=== PATIENT | male | born 1995 | race Caucasian/White ===

== ENCOUNTER → 2019-06-13 | Outpatient (CLI) | payer OTHER, SELFPAY ==
[2019-06-13 09:59] VITALS: BMI 21.8
== END | disposition home or self-care (01) ==
LOC: LABSPEC 13:47
PROVIDERS: Family Provider Pediatrics; PCP Pediatrics; Referring Provider Physician Assistant Surgical; Visit Provider Physician Assistant Surgical
DX: J02.9 Acute pharyngitis, unspecified (principal)
CPT/HCPCS: 87070

== ENCOUNTER → 2020-06-20 | Outpatient (CLI) | payer OTHER, SELFPAY ==
[2019-07-06 16:38] VITALS: BMI 21.8
[2020-06-20 18:28] LABS: Anion Gap 4 (5-15); BUN 11 mg/dL (7-18); Calcium,Total 9.1 mg/dL (8.5-10.1); Chloride 103 mmol/L (98-107); Cholesterol 141 mg/dL (200); EST Glomerular Filtration Rate 88 mL/min (>60); Est Glom Filt Rate - Afr Amer 106 mL/min (>60); Glucose 74 mg/dL (74-106); High Density Lipoprotein 49 mg/dL; Potassium 4.1 mmol/L (3.5-5.1); Sodium Level 137 mmol/L (136-145); Thyroid Stim Hormone (TSH) 1.43 uIU/mL (0.358-3.74); Triglycerides 100 mg/dL; Very Low Density Lipoprotein 20 mg/dL (5-40)
== END | disposition home or self-care (01) ==
LOC: MFPLAB 16:31
PROVIDERS: PCP Family Medicine; Referring Provider Family Medicine; Visit Provider Family Medicine
DX: Z00.00 Encounter for general adult medical examination without abnormal findings (principal); F41.9 Anxiety disorder, unspecified
CPT/HCPCS: 36415; 80048; 80061; 84443

== ENCOUNTER 2021-11-20 16:09 | Outpatient (CLI) | payer OTHER, SELFPAY ==
--- NOTE | 2021-11-20 16:14 | RAD_ITS ---
HISTORY: BACK PAIN. TECHNIQUE: XR Spine Lumbar Min 4 Views. Number of images including paperwork: 4. COMPARISON: None. FINDINGS: VERTEBRAE: 5 lumbar vertebral bodies. Vertebral body heights maintained. No acute fracture identified. VERTEBRAL ALIGNMENT: No significant anterior or posterior subluxation. Very mild levocurvature noted. INTERVERTEBRAL DISCS: Mild intervertebral disc space narrowing of L4-5 and L5-S1. SOFT TISSUES: Moderate stool and air in the colon. RAD/L/S Spine Min 4 Views IMPRESSION: No acute fracture or dislocation identified in the lumbar spine. Mild intervertebral disc space narrowing in the lower lumbar spine. at 1030 Reported and signed by: Carol Ken MD Electronically Signed: Carol Ken MD at 10:28 EST ,
== END 2021-11-20 23:59 | disposition home or self-care (01) ==
PROVIDERS: PCP Family Medicine; Referring Provider Family Medicine; Visit Provider Family Medicine
DX: M54.9 Dorsalgia, unspecified (principal)
CPT/HCPCS: 72110

== ENCOUNTER → 2023-06-10 | Outpatient (CLI) | payer OTHER, SELFPAY ==
[2023-06-10 12:42] LABS: Anion Gap 2 (5-15); BUN 12 mg/dL (7-18); Calcium,Total 9.3 mg/dL (8.5-10.1); Chloride 106 mmol/L (98-107); Cholesterol 146 mg/dL (200); EST Glomerular Filtration Rate 96 mL/min (>60); Est Glom Filt Rate - Afr Amer 116 mL/min (>60); Glucose 88 mg/dL (74-106); High Density Lipoprotein 50 mg/dL; Potassium 3.6 mmol/L (3.5-5.1); Sodium Level 138 mmol/L (136-145); Triglycerides 72 mg/dL; Very Low Density Lipoprotein 14 mg/dL (5-40)
== END | disposition home or self-care (01) ==
PROVIDERS: PCP Family Medicine; Referring Provider Family Medicine; Visit Provider Family Medicine
DX: Z00.00 Encounter for general adult medical examination without abnormal findings (principal)
CPT/HCPCS: 36415; 80048; 80061

== ENCOUNTER → 2023-11-30 | Outpatient (CLI) | payer OTHER, SELFPAY ==
--- NOTE | 2023-11-30 16:24 | MRI_ITS ---
STUDY: MRI LUMBAR SPINE WITHOUT CONTRAST REASON FOR EXAM: Male, 28 years old. Pain TECHNIQUE: Standardized fat and water weighted pulse sequences were obtained in the sagittal and axial planes. COMPARISON: X-ray November 22, 2023 FINDINGS: The generalized signal intensity of the osseous structures is intact. There is marrow edema of the posterior spinous processes of T12, L1, and L2. There is marrow edema of the lower sacrum. T12-L1: Normal endplates. Normal disc height, hydration and morphology. Normal bilateral facet joints. Normal central canal and bilateral lateral recesses. Normal bilateral intervertebral neural foramina. Normal lumbar lordosis. There is no substantial scoliosis. Normal conus medullaris that terminates at the T12 level. L1-2: Normal endplates. Normal disc height, hydration and morphology. Normal bilateral facet joints. Normal central canal and bilateral lateral recesses. Normal bilateral intervertebral neural foramina. L2-3: Normal endplates. Normal disc height, hydration and morphology. Normal bilateral facet joints. Normal central canal and bilateral lateral recesses. Normal bilateral intervertebral neural foramina. L3-4: Normal endplates. Normal disc height, hydration and morphology. Mild spurring of the bilateral facet joints. Normal central canal and bilateral lateral recesses. Normal bilateral intervertebral neural foramina. L4-5: There is disc desiccation. Central left paracentral disc protrusion, series 11 image 11. Facet spurring and ligamentum flavum hypertrophy. Moderate canal stenosis. Mild right foraminal narrowing. L5-S1: Normal endplates. Normal disc height, hydration and morphology. Normal bilateral facet joints. Normal central canal and bilateral lateral recesses. Normal bilateral intervertebral neural foramina. Normal visualized sacral ala. Normal visualized paraspinous soft tissue structures. MRI/Spine Lumbar (Routine) IMPRESSION: Disc herniation with canal stenosis at L4-5. Stress fracture/injury versus contusion of the sacrum and posterior spinous processes of T12, L1, L2. Electronically Signed: Trevon Cobos MD at 23:16 EDT ,
== END | disposition home or self-care (01) ==
PROVIDERS: PCP Family Medicine; Referring Provider Orthopaedic Surgery; Visit Provider Orthopaedic Surgery
DX: M51.26 Other intervertebral disc displacement, lumbar region (principal)
CPT/HCPCS: 72148

== ENCOUNTER → 2024-06-22 | Outpatient (CLI) | payer OTHER, SELFPAY ==
[2024-06-22 13:11] LABS: Anion Gap 3 (5-15); BUN 11 mg/dL (7-18); BUN/Creat Ratio 10.3 RATIO (10-20); Calcium,Total 9.9 mg/dL (8.5-10.1); Chloride 105 mmol/L (98-107); Cholesterol 158 mg/dL (200); Creatinine, Serum 1.07 mg/dL (0.70-1.30); EST Glomerular Filtration Rate 88 mL/min (>60); Est Glom Filt Rate - Afr Amer 106 mL/min (>60); Glucose 83 mg/dL (74-106); High Density Lipoprotein 55 mg/dL; Potassium 3.8 mmol/L (3.5-5.1); Sodium Level 138 mmol/L (136-145); Triglycerides 85 mg/dL; Very Low Density Lipoprotein 17 mg/dL (5-40)
== END | disposition home or self-care (01) ==
LOC: MFPLAB 09:38
PROVIDERS: PCP Family Medicine; Visit Provider Family Medicine
DX: Z00.00 Encounter for general adult medical examination without abnormal findings (principal)
CPT/HCPCS: 36415; 80048; 80061

== ENCOUNTER 2024-08-31 07:00 | Outpatient (RCR) | payer OTHER, SELFPAY ==
--- NOTE | 2024-08-03 08:51 | HP.PTEVAL ---
Patient's Visit Information Visit Information Visit Information: JAMES MORALES is a 28 year old M referred to Physical Therapy by Dr. Uvaldo Ritchie MD with a diagnosis of Lumbar DDD. Date of Evaluation: 08/03/24 Physical Therapist: Shmuel Wiggins DPT Visit Plan Frequency: 1x/Week Duration: 6 Weeks Plan: 1) neutral spine TA contraction, quadruped core stability exercises. 2) lumbar extension with self over pressure May add in IASTIM to bilateral lumbar erector spinae prior to exercises as well HEP at eval: REIL with towel over pressure, TA with iso hip flex, TA with bridge, bird dog, hollow hold Pt. to come in x1 per week with updated HEP weekly Subjective Subjective: Pt is here today for his initial evaluation with diagnosis of lumbar degenerative disc disease. He reports hurting his disc in November of 2023 when he bent over to lift a box. Pt. was using a PT [place] and had some initial success, but never fully relieved his symptoms. He reports he was doing most stretching, he described extension based exercises. Never got to strengthening phase of exercises. He reports increased pain now with bending, getting on floor and with lifting as well as prolonged sitting/standing. He reports mornings are not too bad. He sleeps on his R side mostly. Pt. has become less consistent with his exercises as he was not seeing much change. 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 Pt. 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 Pt. reports no radicular symptoms. Pain Lumbar spine: Pain Intensity (Out of 10): 0 Pain Intensity Range: 0 and 4 Objective Objective: POSTURE: Pt. has a general slouched posture in sitting. Pt. is able to correct with VC/TCing. Pt. has good standing posture. No lateral shift noted. No marked excessive lordosis or sway back positioning. PALPATION: Pt. did have some mild soreness throughout lumbar spine with spring testing, but more general. Pt. did not have any hypomobility noted. Pt. did have marked tenderness at B lumbar erector spinae, L worse than right. ROM: B hips: good ROM throughout. Pretty tight HS and hip flexors. LUMBAR SPINE: flexion min loss increase NW, ext min/nil loss decrease NB, SB nil loss NE, rotation nil loss NE. MMT: Pt. has 5/5 strength throughout B distal LEs. Pt. has 4+/5 B hip strength with flexion abd and extension. Core strength: flexion fair-. Lumbar extension: fair with increase no worse pain. When I gave him stability with press throughout his core he was able to complete with out increase in symptoms. GAIT: normal without issues. STAIRS: normal without much issues. Special Tests L/S Slump test left side: Negative L/S Slump test right side: Negative L/S Left Straight Leg Raise: Negative L/S Right Straight Leg Raise: Negative Balance/Special Test Scores Oswestry Low Back Score: 13 Goals Goal 1:: LTG: Pt. to be I with HEP for neutral spine core stability and lumbar ROM. Goal Time Frame: 4-6 Weeks Goal 2:: STG: Pt. to have full ROM of lumbar spine without increase in symptoms. Goal Time Frame: 2-4 Weeks Goal 3:: LTG: pt. to have 5/5 strength throughout bilateral hips and core. Goal Time Frame: 4-6 Weeks Goal 4:: LTG: Pt. to complete all work activities including prolonged sitting without increase in low back pain. Goal Time Frame: 4-6 Weeks Goal 5:: LTG: Pt. to be able to walk for 30+ min without increase in LBP. Goal Time Frame: 4-6 Weeks Rehabilitation Potential Physical Therapy Diagnosis: Pt. has signs and symptoms consistent with lumbar DDD. Pt. had decent ROM, but was limited into flexion secondary to pain. No marked myotomal weakness noted, but has marked core weakness. Pt. would benefit from PT to address his lumbar ROM and core stability to reduce stress on lumbar spine with all functional mobility and ADLs. Rehabilitation Potential: Excellent Anticipated Interventions Patient/Client Instruction: Educate patient on: Condition, Plan of Care, Risk Factors and Benefits of Fitness Program For the Purpose of:: To improve decision making, To facilitate caregiver knowledge, To improve self management, To prevent re-injury, To improve ability to perform tasks related to life management and To improve tolerance to ADL's Therapeutic Exercise to Include: Strength training, Power training, Endurance training, Body mechanics, Postural training, Flexibilty training, Passive ROM, Active ROM, Dynamic Lumbar Stabilization and John Exercises For the Purpose of:: To decrease pain, To increase ROM, To improve nutrient delivery to tissue, To increase oxygenation perfusion, To improve muscle performance and motor function, To improve ability to perform ADL's, To increase tolerance to activity/condition/position, To improve gait and locomotor functions, To improve health of tissue, To decrease soft tissue restriction and To increase flexibility/ROM Manual Therapy Techniques to Include: Soft tissue mobilization Comment: IASTIM For the Purpose of:: To decrease pain, To increase ROM, To increase oxygenation perfusion and To improve muscle performance and motor function Text: Thank you for the opportunity to evaluate your patient. For Medicare and Medicare HMO plans, please review the plan of care and approve it. It will need to be FAXED BACK to us at [phone] for Medicare purposes. For Medicare only, by signing this I certify the plan of care. Please let me know if there are questions or concerns regarding this plan of care. Physician Signature: Date:
--- NOTE | 2024-08-31 07:35 | HP.PTDCSUM ---
Discharge Summary D/C summary: It has been my pleasure to treat JAMES MORALES referred by Dr. Uvaldo Ritchie MD, with the diagnosis of Lumbar DDD for a total of 5 visit(s). Discharge Date: 08/31/24 Please see the following information for a summary of their discharge status. Subjective Subjective: Pt. reports overall doing better. No pain today. He did have a quick flash of pain yesterday when he bent over to tie his shoes. Pt. reports being 90% better overall. Pain Lumbar spine: Pain Intensity (Out of 10): 0 Overall Improvement % Improvement: 90 Objective Objective/Function: ROM: flexion min loss NE, ext nil loss NE, SB nil loss bilat NE, rotation nil loss NE. Pt. does have tight B HS. MMT: 5/5 throughout BLEs and core strength No pain with palpation throughout BLEs and lumbar spine. Pt. was able to demonstrate good exercise technique Reviewed HEP: REIL, hollow hold, cat/cow, inch worms, fire hydrants, superman Pt. is overall doing well. He is to work on these exercises on his own at this point in time. Pt. to be DC from PT. Goals Goal 1:: LTG: Pt. to be I with HEP for neutral spine core stability and lumbar ROM. Goal Progress: Goal Met Goal 2:: STG: Pt. to have full ROM of lumbar spine without increase in symptoms. Goal Progress: Goal Met Goal 3:: LTG: pt. to have 5/5 strength throughout bilateral hips and core. Goal Progress: Goal Met Goal 4:: LTG: Pt. to complete all work activities including prolonged sitting without increase in low back pain. Goal Progress: Goal Met Goal 5:: LTG: Pt. to be able to walk for 30+ min without increase in LBP. Goal Progress: Goal Met Plan Plan: Pt. to be DC from PT at this point in time. D/C Information d/c sentence: If there are questions or concerns regarding this patient's physical therapy, please feel free to call me at [phone]. Thank you for the referral of this patient. Sincerely, Shmule Barrera Sipos, DPT Balance/Gait/Functional tests Balance/Special Test Scores Oswestry Low Back Score: 2 Improvement % Improvement: 90
== END 2024-08-31 19:00 | disposition home or self-care (01) ==
LOC: PT 07:00
PROVIDERS: PCP Family Medicine; Referring Provider Orthopaedic Surgery Orthopaedic Surgery of the Spine; Visit Provider Orthopaedic Surgery Orthopaedic Surgery of the Spine
DX: M51.369 Other intervertebral disc degeneration, lumbar region without mention of lumbar back pain or lower extremity pain (principal)
CPT/HCPCS: 97110; 97140; 97161; 97530

== ENCOUNTER → 2025-06-01 | Outpatient (CLI) | payer OTHER, SELFPAY ==
--- OUTSIDE RECORDS SUMMARY | 2025-06-01 08:37 | XMS RPT_ITS | CCD ---
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 Geovanny Bravo Primary Care Provider [phone] KIMBERLY Isbell Attending Provider TERESA GRIGSBY, DELANEY Gutierrez Attending Unavail able Dr. Geovanny Bravo Primary Care Provider Dr. Geovanny Bravo Referring Provider 1([facility])[phone] Yves Pereira Attending Provider 1([facility])[phone] Ray Morin Attending Provider 1([facility])[phone] Shelly GRIGSBY, Dr. Small Primary Care Provider 1([facility] )[phone] Shelly GRIGSBY, Dr. Small Referring Provider [phone] Philomena Pugh Attending Provider Patience GRIGSBY, Dr. Bell Attending Provider 1([facility])[phone] Geovanny Bravo Referring Unavailable Geovanny Bravo Primary Care Unavailable Jv Azul Attending Unavailable Geovanny Bravo Referring Unavailable Geovanny Bravo Primary Care Unavailable Philomena Rae Attending Unavailable Geovanny Bravo Primary Care Unavailable Ray Morin Attending Unavailable Geovanny Bravo Referring Unavailable Uvaldo Ritchie Attending Unavailable Geovanny Bravo Primary Care Unavailable Geovanny Bravo Primary Care Unavailable Geovanny Bravo Attending Unavailable Geovanny Bravo Primary Care Unavailable Uvaldo Rithcie Attending Unavailable Uvaldo Ritchie Referring Unavailable Ray Morni Attending Unavailable Geovanny Bravo Primary Care Unavailable Medications Current Medications Medication Drug Class(es) Dates Sig (Normalized) Sig (Original) methocarbamol 500 mg oral tablet (1 source) Muscle Relaxant Start: 03-13-2025 take 1 tablet by mouth three times daily as needed for pain Methocarbamol 500 mg tablet Active 500 mg PO THREE TIMES A DAY as needed for pain/spasms 30 0 March 13, 2025 12:00am Corley (Nk) (1 source) Start: 03-13-2025 Corley (Nk) Active March 13, 2025 12:00am Completed/Discontinued Medications Medication Drug Class(es) Dates Sig (Normalized) Sig (Original) acetaminophen 325 mg / HYDROcodone bitartrate 5 mg oral tablet (4 sources) Opioid Agonist Start: 11-22-2023 End: 07-25-2024 Hydrocodone-Acetami nophen 5-325 mg tablet Discontinued 1 {tbl} PO THREE TIMES A DAY as needed 0 November 22, 2023 12:00am July 25, 2024 8:39am Start: 11-22-2023 take 1 tablet by pranav th three times daily Hydrocodone-Acetaminophen Active 1 TABLE T PO THREE TIMES A DAY November 22, 2023 12:00am Start: 11-21-2023 End: 11-24-2023 take 1 tablet by mouth every six hours as needed for pain [facility] 325- 5 mg oral tablet Dose = 1 tab(s), Oral, q6h, PRN for pain, X 3 day(s), # 9 tab(s), 0 Refill(s), Intervertebral disc disorder Start Date: 11/21/23 Stop Date: 11/24/23 Status: Ordered amoxicillin 875 mg oral tablet (4 sources) Penicillin-class Antibacterial Start: 09-02-2024 End: 09-12-2024 take 1 tablet by mouth twice daily Amoxicillin 875 mg tablet Discontinued 875 mg PO TWICE A DAY 20 10 0 September 02, 2024 1:00am September 11, 2024 1:00am September 02, 2024 1:47pm cyclobenzaprine hydrochloride 5 mg oral tablet (4 sources) Muscle Relaxant Start: 11-21-2023 End: 07-25-2024 take 1 tablet by mouth three times daily as needed Cyclobenzaprine 5 mg tablet Discontinued 5 mg PO THREE TIMES A DAY as needed November 22, 2023 12:00am July 25, 2024 8:39am methylPREDNISolone 4 mg oral tablet (3 sources) Corticosteroid Start: 11-22-2023 End: 11-28-2023 take 1 tablet by mouth once Methylprednisolone (Medrol (Anmol)) 4 mg tablets,dose pack Discontinued 0 PO per package directions 21 6 0 November 22, 2023 12:00am November 27, 2023 12:00am November 28, 2023 12:05am hnp PO PER PKG DIR ondansetron 8 mg oral tablet (4 sources) Serotonin-3 Receptor Antagonist Start: 06-13-2019 End: 11-22-2023 Ondansetron Hcl (Zofran) 8 mg tablet Discontinued 8 mg PO 2 to 3 times per day as needed for nausea and vomiting 14 0 June 13, 2019 12:00am November 22, 2023 1:14pm Nausea sulfamethoxazole 800 mg / trimethoprim 160 mg oral tablet (4 sources) Dihydrofolate Reductase Inhibitor Antibacterial, Sulfonamide Antimicrobial Start: 07-06-2019 End: 07-16-2019 Sulfamethoxazole-Trim ethoprim 800-160 mg tablet Discontinued 1 {tbl} PO TWICE A DAY 20 July 06, 2019 12:00am July 15, 2019 12:00am July 16, 2019 12:10am Start: 07-06-2019 End: 07-16-2019 take 1 tablet by mouth twice daily Sulfamethoxazole-Trimethoprim Discontinu ed 1 TABLET PO TWICE A DAY 20 July 06, 2019 12:00am July 16, 2019 12:10am tiZANidine 2 mg oral capsule (4 sources) Central alpha-2 Adrenergic Agonist Start: 11-19-2021 End: 11-22-2023 take 1 capsule by mouth every eight hours as needed Tizanidine 2 mg capsule Discontinued 2 mg PO Q8H as needed for muscle spasticity 15 0 November 19, 2021 1:00am November 22, 2023 1:14pm Problems Problem Classification Problem Date Documented Date Episodic/Chronic Nausea and vomiting (4 sources) Nausea; Translations: [Nausea] 06-13-2019 Episodic Other upper respiratory infections (6 sources) Acute pharyngitis; Translations: [Acute pharyngitis, unspecified] 06-13-2019 Episodic Residual codes; unclassified (1 source) Pain, unspecified; Translations: [Generalized pain] Episodic Spondylosis; intervertebral disc disorders; other back problems (8 sources) Intervertebral disc disorder; Translations: [Unspecified thoracic, thoracolumbar and lumbosacral intervertebral disc disorder] Onset: 11-21-2023 Chronic Sprains and strains (5 sources) Sprain of spinal ligament; Translations: [Sprain of ligaments of lumbar spine, initial encounter] Episodic Unclassified (1 source) Herniated nucleus pulposus, L4-5 Unclassified (1 source) Unclassified (1 source) M51.26 - Other intervertebral disc displacement, lumbar region,M51.360 - Other intervertebral disc degeneration, lumbar region with discogenic back pain only Unclassified (1 source) Low back pain, unspecified; Translations: [Low back pain, unspecified] Onset: 03-13-2025 Unclassified (1 source) Other intervertebral disc degeneration, lumbar region with discogenic back pain only; Translations: [Other intervertebral disc degeneration, lumbar region with discogenic back pain only] Onset: 03-13-2025 Viral infection (4 sources) Viral disease; Translations: [Viral infection, unspecified] 07-29-2014 Episodic Results Test Name Value Interpretation Reference Range Facil ity L/S Spine Min 4 Viewson L/S Spine Min 4 Views [facility] [address] [place] [address] [id number] L/S Spine Min 4 Views MR#: [id number] Acct: [id number] Name: JAMES MORALES Rep #: [id number] : 1995 M 29 From: Dion Lopes MD PCP: Dr. Geovanny Bravo MD Status: DEP AMB Study: L/S Spine Min 4 Views Date of Exam: 03/13/25 Exam# [id number] Ordering Dr: Philomena Rae PROCEDURE: L/S SPINE MIN 4 VIEWS 03/13/2025 REASON FOR EXAM: PAIN, HX HERNIATED DISC TECHNIQUE: L/S SPINE MIN 4 VIEWS COMPARISON: 07/25/2024 FINDINGS: Curvature: Normal Alignment of the lumbar spine is anatomic. No demonstrated fracture or paraspinal mass. No aggressive osseous lesion. Disc spaces well-preserved, no instability on the flexion or extension views. Prevertebral soft tissues are unremarkable RAD/L/S Spine Min 4 Views IMPRESSION: No acute findings, no instability Reading Location: [id number] CC: KIMBERLY Rubio; Dr. 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 Parking: Signed Normal [facility] Orthopedic Visit Reporton Orthopedic Visit Report [facility] [address] [place] [address] OFFICE VISIT Date of Service: 03/13/25 MR#: [id number] Acct: [id number] Name: JAMES MORALES Rep #: [id number] : 1995 Provider: KIMBERLY uRbio Age/Sex: 29/M Location: [facility] Status: Signed Intake Vital Signs 09/02/24 09:35 Height 6 ft 2 in BP 122/70 H Blood Pressure Location Lt brachial Position Sitting Respiration 12 Pulse 79 Pulse Source NIBP Temp 98.2 F Temp Source Oral Pulse Oximetry (%) 98 Oxygen Delivery Method room air Intake Visit Reasons: LUMBAR SPINE Chief Complaint: lumbar spine Allergies No Known Allergies Allergy (Verified 03/13/25 08:29) Medications ???Medication ???Instructions ???Recorded ???Confirmed ???Type methocarbamol 500 mg tablet 500 mg PO TID PRN pain/spasms #30 03/13/25 03/13/25 Rx tabs PFSH Surgical History History of wisdom tooth extraction Social History household members: spouse Smoking Status: Never smoker alcohol intake: current alcohol intake frequency: a few times a week Alcohol type: beer HPI LUMBAR SPINE Details: This documentation accurately reflects the service provided and the decisions made by me, KIMBERLY Rubio 03/13/25 0824. Part of today???s visit was documented by Bess BLANCO, acting as scribe. JAMES MORALES is a 29 year old M here today for continued lower back pain. In the past the patient has seen Dr. Pereira and Dr. Ritchie. He did do PT which was beneficial and has made it to where his pain is better than it was but he is still not where he would like to be. He completed physical therapy back around July 2024. Patient continues to do stretches and exercises at home that he was taught at PT. he has been completing these exercises at home on a daily basis. He denies seeing pain management. His pain is more in the middle of his lower back and sometimes will extend into the right side of his lower back. At times he will get pain that radiates into his right buttock. He denies radiating pain. He states that about 2 weeks ago he did have some numbness down the left leg and into his pinky toe but that has now subsided. Bending over and picking things up increases his pain. Walking doesn't increase his pain and does help. He states that about a month ago he started having increased pain when he was sitting in his chair and felt his back get tighter but before that he has been doing well. Patient says that this flare of symptoms over the last month is similar to his prior back pain that he has had for the last several years. Prior to a month ago he did have several months of relief before his pain began again. He says that some days are better than others and some days he has an increase in pain. He does take 600mg of Ibuprofen as needed which helps take the edge off of his pain. He will take the Tylenol as needed with the ibuprofen. Ortho Exam General General: Yes no acute distress Neurologic: Yes alert and Yes oriented x3 Spine SPINE TESTING CERVICAL THORACIC LUMBAR Musculoskeletal Strength 0=absent - 5=normal Details: Neurological exam of the lower extremities shows 5x5 power. Normal sensations across all dermatomes. No hyperreflexia. There is mild midline tenderness and no paraspinal tenderness. Coding Level of Care Code Off vis,est,level 3 Diagnoses Herniated nucleus pulposus, L4-5 M51.26 Other intervertebral disc degeneration, lumbar region with discogenic back pain only M51.360 Assessment and Plan Assessment and Plan (1) Herniated nucleus pulposus, L4-5: Status: Acute (2) Other intervertebral disc degeneration, lumbar region with discogenic back pain only: Status: Acute Orders: Orders L/S Spine Min 4 Views Today M54.50 - Low back pain, unspecified Referrals Pain Management M51.26 - Other intervertebral disc displacement, lumbar region, M51.360 - Other intervertebral disc degeneration, lumbar region with discogenic back pain only Medications: New methocarbamol 500 mg PO TID PRN 30 tabs 0RF pain/spasms Plan Obtained reviewed lumbar x-rays today in the clinic. Independent interpretation of the x-rays show mild disc height loss at L4-5 and L5-S1, no significant instability on dynamic views, no fractures. Reviewed lumbar MRI from November 2023 which showed L4-5 central left paracentral disc protrusion with moderate canal stenosis and mild right foraminal stenosis. Explained the imaging findings in detail. At this time due to the patient's continued low back pain which she has been dealing with for several years that comes and flares recommend he see pain management for epidural steroid (more content not included)... Normal [facility] Urgent Care Visit Reporton 1 11-03-2023 Urgent Care Visit Report [facility] [address], [address] [place] [address] OFFICE VISIT Date of Service: 09/02/24 MR#: [id number] Acct: [id number] Name: JAMES MORALES Rep #: [id number] : 1995 Provider: KIMBERLY Erickson Age/Sex: 28/M Location: [facility] Status: Signed Intake Vital Signs 11/22/23 13:12 09/02/24 09:35 Height 6 ft 2 in 6 ft 2 in BP 122/70 H Blood Pressure Location Lt brachial Position Sitting Respiration 12 Pulse 79 Pulse Source NIBP Temp 98.2 F Temp Source Oral Pulse Oximetry (%) 98 Oxygen Delivery Method room air Intake Visit Reasons: SORE THROAT Chief 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: 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 Is patient in pain?: No Allergies No Known Allergies Allergy (Verified 09/02/24 11:31) Medications ???Medication ???Instructions ???Recorded ???Confirmed ???Type amoxicillin 875 mg tablet 875 mg PO BID 10 days #20 tabs 09/02/24 09/02/24 Rx Have you fallen in the past year?: No PFSH Surgical History History of wisdom tooth extraction Social History household members: spouse Smoking Status: Never smoker alcohol intake: current alcohol intake frequency: a few times a week Alcohol type: beer HPI HPI Chief Complaint: lumbar spine Details: JAMES MORALES, is a 28 M who presents to the office today for sore throat, cough, congestion x2 weeks. Patient states that he started with cold symptoms several weeks ago which seemed to resolve until his sore throat started again approximately 4-5 days ago. Patient notes progressive worsening of his sore throat since recurrence. Patient denies symptoms of fever, chills, myalgia, and SOB. Patient states that he does manage seasonal allergies with daily antihistamine which helps to control his symptoms. Patient denies contact with other individuals with similar symptoms (works from home and only child is 5 months old). ROS Const Constitutional: No chills or fever(s) ENT ENT: Positive for nasal congestion, nasal discharge, post nasal drip and sore throat; No ear or mastoid pain, ear discharge, sinus pressure or sinus pain Resp Respiratory: Positive for cough; No chest congestion, excessive phlegm production, shortness of breath or wheezing Gastro GI: No abdominal pain, change in bowel habits, constipation, diarrhea, nausea/dyspepsia or vomiting Aller/Imm Allergy/Immunologic: No seasonal allergy symptoms or wheezing Exam Const General: cooperative and no acute distress HENMT Ears: external ears normal and TM's normal bilaterally Nose: nares normal, no nasal discharge and mucous membranes and turbinates abnormal erythematous on the right Face and sinus: sinuses nontender Mouth: oral mucosa abnormal erythematous (posterior oropharynx, no exudate) Throat: posterior oropharynx normal Eyes Conjunctivae: conjunctivae normal Sclera: sclerae normal Neck Lymphatic: no lymphadenopathy noted Resp Auscultation: Bilateral: Clear to Auscultation Cardio Rate: regular rate Rhythm: regular rhythm Heart Sounds: S1 normal and S2 normal Results POC Ny Rapid Strep POC Ny Rapid Strep Negative Last Edit by Adenike Mauricio on 09/02/24 12:06 Coding Level of Care Code Established Pt Off vis,est,level 3 Patient Type Established History Problem Focused Exam Problem Focused Medical Decision Making Low Complexity Diagnoses Pharyngitis, unspecified etiology J02.9 Pharyngitis/tonsillit is etiology: unspecified etiology Assessment and Plan Assessment and Plan (1) Pharyngitis: Status: Acute Qualifiers: Pharyngitis/tonsillit is etiology: unspecified etiology Qualified Code(s): J02.9 - Acute pharyngitis, unspecified Plan: See POC testing for results. Despite negative strep in office will initiate antibiotic management given extended duration of symptoms and signs of bacterial pharyngitis noted on exam. Encouraged symptomatic care with OTC treatment options and f/u with PCP or back in the [facility] with persistent or worsening symptoms despite management. Patient voiced understanding and agreement with plan. Orders: Orders POC Ny Rapid Strep A Today Medications: New amoxicillin 875 mg PO BID 10 days 20 tabs 0RF Clinical Quality Measures Falls Risk Screening/Assistive Devices Have you fallen in the past year?: No 09/02/24 1353 Date Jv Baer Signature: Date (if applicable) CC: Normal [facility] PT D/C Summary (1)on 024 PT D/C Summary (1) [facility] Physical Therapy [facility] [address] [place] [address]. [address] [place] [address] / REHABILITATION SERVICES DISCHARGE SUMMARY MR#: [id number] Acct: [id number] Name: JAMES MORALES Rep #: [id number] : 1995 28 From: Shmuel Wiggins DPT Referring Dr.: Dr. Uvaldo Ritchie MD Status: REG R Insurance: [facility] [place] [id number] SELF PAY INSURANCE Discharge Summary D/C summary: It has been my pleasure to treat JAMES MORALES referred by Dr. Uvaldo Ritchie MD, with the diagnosis of Lumbar DDD for a total of 5 visit(s). Discharge Date: 08/31/24 Please see the following information for a summary of their discharge status. Subjective Subjective: Pt. reports overall doing better. No pain today. He did have a quick flash of pain yesterday when he bent over to tie his shoes. Pt. reports being 90% better overall. Pain Lumbar spine: Pain Intensity (Out of 10): 0 Overall Improvement % Improvement: 90 Objective Objective/Function: ROM: flexion min loss NE, ext nil loss NE, SB nil loss bilat NE, rotation nil loss NE. Pt. does have tight B HS. MMT: 5/5 throughout BLEs and core strength No pain with palpation throughout BLEs and lumbar spine. Pt. was able to demonstrate good exercise technique Reviewed HEP: REIL, hollow hold, cat/cow, inch worms, fire hydrants, superman Pt. is overall doing well. He is to work on these exercises on his own at this point in time. Pt. to be DC from PT. Goals Goal 1:: LTG: Pt. to be I with HEP for neutral spine core stability and lumbar ROM. Goal Progress: Goal Met Goal 2:: STG: Pt. to have full ROM of lumbar spine without increase in symptoms. Goal Progress: Goal Met Goal 3:: LTG: pt. to have 5/5 strength throughout bilateral hips and core. Goal Progress: Goal Met Goal 4:: LTG: Pt. to complete all work activities including prolonged sitting without increase in low back pain. Goal Progress: Goal Met Goal 5:: LTG: Pt. to be able to walk for 30+ min without increase in LBP. Goal Progress: Goal Met Plan Plan: Pt. to be DC from PT at this point in time. D/C Information d/c sentence: If there are questions or concerns regarding this patient's physical therapy, please feel free to call me at [phone]. Thank you for the referral of this patient. Sincerely, Shmuel Barrera Sipos, DPT Balance/Gait/Function al tests Balance/Special Test Scores Oswestry Low Back Score: 2 Improvement % Improvement: 90 08/31/24 0735 CC: Dr. Uvaldo Ritchie MD; Dr. Geovanny Bravo MD CLS Signed Normal [facility] Inital Evaluation (1) - PTon 08-03-2024 Inital Evaluation (1) - PT [facility] Physical Therapy [address] [place] [address] / REHABILITATION SERVICES INITIAL EVALUATION MR#: [id number] Acct: [id number] Name: JAMES MORALES Rep #: [id number] : 1995 28 From: Shmuel Wiggins DPT Referring Dr.: Dr. Uvaldo Ritchie MD Status: REG RCR Insurance: [place] [id number] SELF PAY INSURANCE Patient's Visit Information Visit Information Visit Information: JAMES MORALES is a 28 year old M referred to Physical Therapy by Dr. Uvaldo Ritchie MD with a diagnosis of Lumbar DDD. Date of Evaluation: 08/03/24 Physical Therapist: Shmuel Wiggins DPT Visit Plan Frequency: 1x/Week Duration: 6 Weeks Plan: 1) neutral spine TA contraction, quadruped core stability exercises. 2) lumbar extension with self over pressure May add in IASTIM to bilateral lumbar erector spinae prior to exercises as well HEP at eval: REIL with towel over pressure, TA with iso hip flex, TA with bridge, bird dog, hollow hold Pt. to come in x1 per week with updated HEP weekly Subjective Subjective: Pt is here today for his initial evaluation with diagnosis of lumbar degenerative disc disease. He reports hurting his disc in November of 2023 when he bent over to lift a box. Pt. was using a PT [place] and had some initial success, but never fully relieved his symptoms. He reports he was doing most stretching, he described extension based exercises. Never got to strengthening phase of exercises. He reports increased pain now with bending, getting on floor and with lifting as well as prolonged sitting/standing. He reports mornings are not too bad. He sleeps on his R side mostly. Pt. has become less consistent with his exercises as he was not seeing much change. 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 Pt. is hopeful to reduce his back pain in order to picking tech his young child and complete all recreational activities without limitations. Pt. reports no radicular symptoms. Pain Lumbar spine: Pain Intensity (Out of 10): 0 Pain Intensity Range: 0 and 4 Objective Objective: POSTURE: Pt. has a general slouched posture in sitting. Pt. is able to correct with VC/TCing. Pt. has good standing posture. No lateral shift noted. No marked excessive lordosis or sway back positioning. PALPATION: Pt. did have some mild soreness throughout lumbar spine with spring testing, but more general. Pt. did not have any hypomobility noted. Pt. did have marked tenderness at B lumbar erector spinae, L worse than right. ROM: B hips: good ROM throughout. Pretty tight HS and hip flexors. LUMBAR SPINE: flexion min loss increase NW, ext min/nil loss decrease NB, SB nil loss NE, rotation nil loss NE. MMT: Pt. has 5/5 strength throughout B distal LEs. Pt. has 4+/5 B hip strength with flexion abd and extension. Core strength: flexion fair-. Lumbar extension: fair with increase no worse pain. When I gave him stability with press throughout his core he was able to complete with out increase in symptoms. GAIT: normal without issues. STAIRS: normal without much issues. Special Tests L/S Slump test left side: Negative L/S Slump test right side: Negative L/S Left Straight Leg Raise: Negative L/S Right Straight Leg Raise: Negative Balance/Special Test Scores Oswestry Low Back Score: 13 Goals Goal 1:: LTG: Pt. to be I with HEP for neutral spine core stability and lumbar ROM. Goal Time Frame: 4-6 Weeks Goal 2:: STG: Pt. to have full ROM of lumbar spine without increase in symptoms. Goal Time Frame: 2-4 Weeks Goal 3:: LTG: pt. to have 5/5 strength throughout bilateral hips and core. Goal Time Frame: 4-6 Weeks Goal 4:: LTG: Pt. to complete all work activities including prolonged sitting without increase in low back pain. Goal Time Frame: 4-6 Weeks Goal 5:: LTG: Pt. to be able to walk for 30+ min without increase in LBP. Goal Time Frame: 4-6 Weeks Rehabilitation Potential Physical Therapy Diagnosis: Pt. has signs and symptoms consistent with lumbar DDD. Pt. had decent ROM, but was limited into flexion secondary to pain. No marked myotomal weakness noted, but has marked core weakness. Pt. would benefit from PT to address his lumbar ROM and core stability to reduce stress on lumbar spine with all functional mobility and ADLs. Rehabilitation Potential: Excellent Anticipated Interventions Patient/Client Instruction: Educate patient on: Condition, Plan of Care, Risk Factors and Benefits of Fitness Program For the Purpose of:: To improve decision making, To facilitate caregiver knowledge, To improve self management, To prevent re-injury, To improve ability to perform tasks related to life management and To improve tolerance to ADL's Therapeutic Exercise to Include: Strength training, Power training, Endurance training, Body mechanics, (more content not included)... Normal [facility] L/S Spine Bending Flex/Loyal 07-25-2024 L/S Spine Bending Flex/Ext [facility] [address] [place] [address] L/S Spine Bending Flex/Ext MR#: [id number] Acct: [id number] Name: JAMES MORALES Rep #: [id number] : 1995 M 28 From: Daniel Urbina DO PCP: Dr. Geovanny Bravo MD Status: DEP AMB Study: L/S Spine Bending Flex/Ext Date of Exam: 07/25 Exam# [id number] Ordering Dr: Philomena Rae [id number] STUDY: X-RAY - LUMBAR SPINE REASON FOR EXAM: Male, 28 years old. back pain -- flex/ext TECHNIQUE: Flexion and extension lateral view(s) of the lumbar spine were obtained. COMPARISON: No November 22, 2023 FINDINGS: Straightening of the upper lumbar lordosis. There is no substantial scoliosis. There is a normal alignment of the vertebrae. Minimal wedge compression of L2 similar to previous study. Normal disc space heights. Limited upper lumbar flexion and extension. The soft tissue structures are unremarkable. RAD/L/S Spine Bending Flex/Ext IMPRESSION: Limited flexion and extension of the upper lumbar spine. Electronically Signed: Daniel Urbina DO at 8:15 EST Reading Location ID and State: [place] / [place] Tel [phone], Service support , CC: KIMBERLY Rubio; Dr. 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 Parking: Signed Normal [facility] Orthopedic Visit Reporton Orthopedic Visit Report [facility] [address] [place] [address] OFFICE VISIT Date of Service: 07/25/24 MR#: [id number] Acct: [id number] Name: JAMES MORALES Rep #: [id number] : 1995 Provider: Dr. Uvaldo Ritchie MD Age/Sex: 28/M Location: [facility] Status: Signed Intake Vital Signs 11/22/23 13:12 Height 6 ft 2 in Intake Visit Reasons: LUMBAR SPINE Chief Complaint: lumbar spine Accompanied by: Self Allergies No Known Allergies Allergy (Verified 07/25/24 07:39) Medications ???Medication ???Instructions ???Recorded ???Confirmed ???Type NK 07/25/24 07/25/24 History PFSH Surgical History History of wisdom tooth extraction Social History household members: spouse Smoking Status: Never smoker alcohol intake: current alcohol intake frequency: a few times a week Alcohol type: beer HPI LUMBAR SPINE Details: This documentation accurately reflects the service provided and the decisions made by me, Dr. Uvaldo Ritchie MD 07/25/24 0733. Part of today???s visit was documented by [ ], acting as scribe. JAMES MORALES is a 28 year old M here today for low back pain. Patient notes that he has seen Dr Pereira prior. Says that when he first saw Dr. Pereira, he was given oral steroids and told that the his back would heal. Started after he lifted a box at the beginning of the year. No new flair ups since his initial injury. He states that some days are worse than others. He complains of pain in his low back. Patient denies any radiating pain, numbness or tingling. Patient notes that he has increased pain with getting off the floor, squatting or bending forward. He has increased pain with sitting at times. Patient notes that he did a home exercise program which was helpful. Patient denies any injections. He had xrays and an MRI in November 2023. Patient takes ibuprofen or Tylenol for pain. Ortho Exam General General: Yes no acute distress Neurologic: Yes alert and Yes oriented x3 Spine SPINE TESTING CERVICAL THORACIC LUMBAR Musculoskeletal Strength 0=absent - 5=normal Details: Neurological exam of the lower extremities shows 5x5 power. Normal sensations across all dermatomes. No hyperreflexia. No midline or paraspinal tenderness. Coding Level of Care Code Off vis,est,level 4 Diagnoses Herniated nucleus pulposus, L4-5 M51.26 Other intervertebral disc degeneration, lumbar region with discogenic back pain only M51.360 Time Spent (min) 35 Assessment and Plan Assessment and Plan (1) Herniated nucleus pulposus, L4-5: Status: Acute (2) Other intervertebral disc degeneration, lumbar region with discogenic back pain only: Status: Acute Orders: Orders L/S Spine Bending Flex/Ext Today KIMBERLY Rubio M54.50 - Low back pain, unspecified Referrals Physical Therapy Referral Dr. Uvaldo Ritchie MD M51.369 - Other intervertebral disc degeneration, lumbar region without mention of lumbar back pain or lower extremity pain Plan Obtained and reviewed flexion/extension xrays today. Lumbar xrays are relatively normal with no instability on flexion/extension views. Reviewed prior MRI from November 2023 which showed a small disc herniation at L4-5, right foraminal and lateral recess stenosis. Explained imaging findings in detail. He has had this axial low back pain since the beginning of the year with his pain improving since then but still causing some discomfort for him, primarily when trying to get down on the floor to play with his 4-month-old son. Discussed options today which include physical therapy core strengthening and to get suggestions on how best to get down and up from the floor, and consideration of injections with pain management. He will follow up after physical therapy and let us know if he would require a pain consult for injections. Patient is in agreement. 07/25/24 0838 Date Uvaldo Ritchie MD Cosigner Signature: Date (if applicable) CC: Dr. Geovanny Bravo MD Normal [facility] Basic Metabolic Profile (BMP )on 06-22-2024 BUN/CRE 10.3 RATIO Normal 10-20 [facility] Comment on above: Performed By: #### L 500.2500, L500.4100 #### [facility] [address] [place], [address] CA,Total 9.9 mg/dL Normal 8.5-10.1 [facility] Comment on above: Performed By: #### L 500.2500, L500.4100 #### [facility] [address] [place], [address] Chloride [Moles/Vol] 105 mmol/L Normal 98-107 [facility] Comment on above: Performed By: #### L 500.2500, L500.4100 #### [facility] [address] [place], [address] CO2 [Moles/Vol] 29.0 mmol/L Normal 21.0-32.0 [facility] Comment on above: Performed By: #### L 500.2500, L500.4100 #### [facility] [address] [place], [address] Creatinine [Mass/Vol] 1.07 mg/dL Normal 0.70-1.30 [facility] Comment on above: Result Comment: The validity of the calculated GFR GFRAA in patients over 70 years has not been determined. Clinical correlation is essential. Performed By: #### L 500.2500, L500.4100 #### [facility] [address] [place], [address] EST GFR - AA 106 mL/min Normal >60 [facility] Comment on above: Result Comment: Afri can Grenadian GFR Calc Performed By: #### L 500.2500, L500.4100 #### [facility] [address] [place], [address] GAP 3 Low 5-15 [facility] Comment on above: Performed By: #### L 500.2500, L500.4100 #### [facility] [address] [place], [address] GFR/1.73 sq M.predicted among non-blacks MDRD (S/P/Bld) [Vol rate/Area] 88 mL/min/{1.73_m2} Normal >60 [facility] Comment on above: Result Comment: Non- GFR Calc Performed By: #### L 500.2500, L500.4100 #### [facility] [address] [place], [address] Glucose [Mass/Vol] 83 mg/dL Normal 74-106 [facility] Comment on above: Performed By: #### L 500.2500, L500.4100 #### [facility] [address] [place], [address] Potassium [Moles/Vol] 3.8 mmol/L Normal 3.5-5.1 [facility] Comment on above: Performed By: #### L 500.2500, L500.4100 #### [facility] [address] [place], [address] Sodium [Moles/Vol] 138 mmol/L Normal 136-145 [facility] Comment on above: Performed By: #### L 500.2500, L500.4100 #### [facility] [address] [place], [address] Urea nitrogen [Mass/Vol] 11 mg/dL Normal 7-18 [facility] Comment on above: Performed By: #### L 500.2500, L500.4100 #### [facility] [address] [place], [address] Lipid Profileon 06-22-2024 Cholesterol [Mass/Vol] 158 mg/dL Normal 200 [facility] Comment on above: Result Comment: <200 mg/dL Desirable 200-240 mg/dL Borderline >240 mg/dL High Risk Performed By: #### L 500.2500, L500.4100 #### [facility] [address] [place], [address] Cholesterol in HDL [Mass/Vol] 55 mg/dL Normal [facility] Comment on above: Result Comment: The drugs N-Acetylcysteine and Metamizole may falsely depress this assay. Reference Range HDL <40 mg/dL Low HDL Cholesterol HDL >or= 60 mg/dL High HDL Cholesterol Performed By: #### L 500.2500, L500.4100 #### [facility] [address] [place], [address] Cholesterol in LDL [Mass/Vol] 86 mg/dL Normal 0-130 [facility] Comment on above: Performed By: #### L 500.2500, L500.4100 #### [facility] [address] [place], [address] Cholesterol in VLDL [Mass/Vol] 17 mg/dL Normal 5-40 [facility] Comment on above: Performed By: #### L 500.2500, L500.4100 #### [facility] [address] [place], [address] Triglyceride [Mass/Vol] 85 mg/dL Normal [facility] Comment on above: Result Comment: The drugs N-Acetylcysteine and Metamizole may falsely depress this assay. Serum Triglycerides Reference Interval Normal <150 mg/dL Borderline high 150 - 199 mg/dL High 200 - 499 mg/dL Very High > or = 500 mg/dL Performed By: #### L 500.2500, L500.4100 #### [facility] [address] [place], [address] CT SPINE LUMBAR W/O CONTRAST on 11-21-2023 CT SPINE LUMBAR W/O CONTRAST ORIGINAL EXAMINATION: CT OF THE LUMBAR SPINE WITHOUT CONTRAST 11/21/2023 TECHNIQUE: CT of the lumbar spine was performed without the administration of intravenous contrast. Multiplanar reformatted images are provided for review. Adjustment of mA and/or kV according to patient size was utilized. Automated exposure control, iterative reconstruction, and/or weight based adjustment of the mA/kV was utilized to reduce the radiation dose to as low as reasonably achievable. COMPARISON: None HISTORY: ORDERING SYSTEM PROVIDED HISTORY: Reason for Exam: lbp lower back pain. heard a pop while moving boxes FINDINGS: BONES/ALIGNMENT: There is mild levoscoliosis. The vertebral body heights are maintained. No osseous destructive lesion is seen. There are small endplate indentations compatible with Schmorl's nodes. L1-L2: There is no significant disc protrusion, central spinal canal stenosis or neural foraminal narrowing. L2-L3: There is mild disc bulge with endplate osteophytes and bilateral foraminal extension. There is mild ligamentum flavum and facet hypertrophy. There is mild central canal stenosis. There is no neuroforaminal stenosis. L3-L4: There is minimal grade 1 retrolisthesis of L3. There is mild disc bulge with endplate osteophytes and bilateral foraminal extension. There is mild ligamentum flavum and facet hypertrophy. There is mild central canal stenosis. There is mild-moderate bilateral neuroforaminal stenosis. L4-L5: There is moderate-severe disc space narrowing. There is mild ligamentum flavum and facet hypertrophy. There is disc bulge with endplate osteophytes and bilateral foraminal extension. There is broad-based central disc extrusion measuring 4 mm AP by 6 mm cc eccentric to the left, with moderate left lateral recess stenosis and possible mild impingement of the traversing left L5 nerve root. There is mild central canal stenosis. Moderate bilateral neural foraminal stenosis is present. L5-S1: Mild disc space narrowing is present. There is mild ligamentum flavum and facet hypertrophy. There is mild disc bulge with endplate osteophytes and bilateral foraminal extension. There is no central canal or neuroforaminal stenosis. SOFT TISSUES/RETROPERITONE UM: No paraspinal mass is seen. IMPRESSION: 1. There is no acute fracture or dislocation of the lumbar spine. 2. Multilevel mild degenerative changes are present. At L4-L5, there is broad-based central disc extrusion measuring 4 mm AP by 6 mm cc eccentric to the left, with moderate left lateral recess stenosis and possible mild impingement of the traversing left L5 nerve root. Follow-up MRI study may be useful for further evaluation, as clinically indicated. Interpreted by: Khris Young Preliminary Report By: Khris Young Electronically signed By Khris Young Dictated Date: 11/21/2023 6:18:06 PM Prelim Date: 11/21/2023 6:25:22 PM Sign Date: 11/21/2023 6:25:22 PM Ordering Provider: WINSOME Craig [facility] ([place]) Vital Signs Date Time Vital Sign Value Performing Clinician Esvin chavez 11-22-2023 13:12-0400 Body height 187.[address] Geovanny Bravo Work Phone: [facility] 11-22-2023 13:12-0400 Body mass index (BMI) [Ratio] 25.2 kg/m2 Dr. Geovanny Bravo Work Phone: [facility] 11-22-2023 13:12-0400 Body weight 89.[address] Geovanny Bravo Work Phone: [facility] 11-21-2023 17:45-0400 Diastolic Blood Pressure Non-Invasive 72 mm[Hg] DELANEY MOORE MD [facility] 11-21-2023 17:45-0400 Heart rate 121 /min DELANEY MOORE MD [facility] 11-21-2023 17:45-0400 Reason For Taking VItal Signs DELANEY MOORE MD [facility] 11-21-2023 17:45-0400 Respiratory rate 18 /min DELANEY MOORE MD [facility] 11-21-2023 17:45-0400 Systolic Blood Pressure Non-Invasive 152 mm[Hg] DELANEY MOORE MD [facility] 11-21-2023 16:56-0400 Blood Pressure Cuff Size DELANEY MOORE MD [facility] 11-21-2023 16:56-0400 Blood Pressure Location EDLANEY MOORE MD [facility] 11-21-2023 16:56-0400 Blood Pressure Method DELANEY MOORE MD [facility] 11-21-2023 16:56-0400 Body temperature 98.6 [degF] DELANEY MOORE MD [facility] 11-21-2023 16:56-0400 Diastolic Blood Pressure Non-Invasive 63 mm[Hg] DELANEY MOORE MD [facility] 11-21-2023 16:56-0400 Heart rate 130 /min DELANEY MOORE MD [facility] 11-21-2023 16:56-0400 Respiratory rate 18 /min DELANEY MOORE MD [facility] 11-21-2023 16:56-0400 Systolic Blood Pressure Non-Invasive 158 mm[Hg] DELANEY MOORE MD [facility] Encounters Encounter Date Encounter Type Care Provider Facility Start: 03-13-2025 End: 03-13-[address] Ray Morin MD [facility] Start: 03-13-2025 End: 03-13-[address] Geovanny Bravo MD Work Phone: -[facility] Start: 09-02-2024 End: 09-02-2024 ambulatory Geovanny Bravo Facility:[facility] Start: 08-31-2024 End: 08-31-2024 ambulatory Geovanny Bravo Facility:[facility] Start: 07-25-2024 End: 07-25-2024 ambulatory Geovanny Bravo Facility:[facility] Start: 07-13-2024 Encounter for genera l adult medical examination without abnormal findings Geovanny Bravo [facility] Start: 06-22-2024 End: 06-22-2024 ambulatory Geovanny Bravo Facility:[facility] Start: 11-30-2023 End: 11-30-[address] Geovanny Bravo Work Phone: [facility] Work Phone: Start: 11-30-2023 End: 11-30-[address] Geovanny Bravo Work Phone: [facility] Work Phone: Start: 11-22-2023 End: 11-22-[address] Geovanny Bravo Work Phone: [facility] Work Phone: Start: 11-21-2023 End: 11-21-2023 Emergency department patient visit DELANEY MOORE MD Facility:[facility] Start: 11-21-2023 End: 11-21-2023 Emergency department patient visit DELANEY MOORE MD [facility] Start: 11-20-2021 End: 11-20-[address] Geovanny Bravo Work Phone: [facility] Start: 11-19-2021 End: 11-19-[address] Geovanny Bravo Work Phone: [facility] Virtual Visit Procedures Date Procedure Procedure Detail Performing Clinician Start: 11-30-[address] MRI of lumbar spine [address]. Geovanny Bravo Work Phone: Start: 11-22-2023 X-ray of lumbar spin e, two or three views Dr. Geovanny Bravo Work Phone: Start: 11-20-2021 X-ray of lumbosacral spine Dr. Geovanny Bravo Work Phone: Plan of Treatment Date Care Activity Detail Author Start: 03-13-2025 X-ray of lumbosacral spine L/S Spine Min 4 Views [facility] Start: 03-13-2025 XR Spine Lumbar and Sacrum GE 4 Views [facility] Payers Date Payer Category Payer Self-pay [id number] 2023 Unknown [id number] 1995 Unknown [id number] 2.16.8 [id number] Unknown [id number] Unknown [id number] 2.16.8 [id number] Unknown [id number] 2.16.8 [id number] Unknown [id number] 2.16.8 [id number] Unknown [id number] 2.16.8 [id number] Unknown [id number] 2.16.8 [id number] Unknown [id number] 2.16.8 [id number] Unknown [id number] 2.16.8 [id number] Social History Date Type Detail Facility Start: 11-19-2021 End: 11-22-2023 Tobacco smoking status NHIS Unknown if ever smoked [facility] Start: 1995 Sex Assigned At Male A [facility] Tobacco smoking status No Smokin g Status Entered [facility] Start: 09-02-2024 Tobacco smoking stat us NHIS Never smoked tobacco (finding) [facility] Functional Status Date Assessment Result Facility 11-21-2023 Functional Status Independent [facility] 11-21-2023 Functional Status Ambulation in [place], Ambulation in Room [facility] Mental Status Date Assessment Result Facility 11-21-2023 Mental Status Orientation Oriented x 4 [facility] 11-21-2023 Mental Status [facility] Hospital Discharge instructions 11-21-2023 Note Date & Type Note Facility 11-21-2023 Hospital Discharg e instructions Patient Education 11/21/2023 18:35:53 Back Safety: Lifting Back Safety: Lifting Lifting can strain or even injure your back. Follow these tips to keep your back safe while you bend, lift, and carry. Step 1: Face the object. With your back straight, get down on one knee. If you can, tilt the object so one side lifts off the ground. Keep the object close to you. Step 2: Tighten your stomach muscles. Use your legs, arms, and buttocks to lift, not your back. Avoid twisting. Lift the object to your knee. Grasp the object firmly. Step 3: Lift with your arms and legs, not your back. Move quickly to help make this easier. To carry an object: Hold it close to your body. Bend your knees slightly as you walk. The heavier the object, the more you should bend your knees. Get help with heavy or unbalanced objects. 3663-[address] [employer] [address] [place] [address]. All rights reserved. This information is not intended as a substitute for professional medical care. Always follow your healthcare professional's instructions. Follow Up Care 11/21/2023 16:46:55 With:Go to emergency room if symptoms worsen Address:Unknown When:2-4 days With:ALBERTO NEWELL MD Address: [address] [facility] [place] [address]- When:2-4 days [facility] Clinical Note 11-21-2023 Note Date & Type Note Facility 11-21-2023 Note Discharge Instructions Thank you for allowing [facility] to assist you with your healthcare needs. The following is important discharge information regarding your hospital visit. Diagnosis from Today's Visit Back pain Intervertebral disc disorder What to Do Next Instructions from Your Care Team Your CT scan shows possible nerve impingement. You need an MRI and followup to address this and your back pain issues. No qualifying data available. Post Acute Orders No qualifying data available. You Need to Schedule the Following Appointments Follow Up with Go to emergency room if symptoms worsen When Within 2-4 days Follow Up with ALBERTO NEWELL MD When Within 2-4 days Where: [address] [facility] [place] [address]- Allergies No active allergies Medications Please ask your primary doctor or pharmacist before taking any other medication not listed, including over the counter drugs, herbal medications, vitamins and or supplements as they may interact with your home medications. What How Much When Why Instructions Last Dose New acetaminophen-hydrocodone ([facility] 325- 5 mg oral tablet) 1 tab(s) by mouth Every 6 hours as needed for for pain Intervertebral disc disorder Duration: 3 Days Printed Prescription New cyclobenzaprine (cyclobenzaprine 5 mg oral tablet) 1 tab(s) by mouth Three (3) times a day Duration: 7 Days Printed Prescription Please take this list to your next doctor s visit. Bring all medications you take, including over the counter medications, herbals and other supplements with you to your doctor s visit. Patients and families are reminded to discard old lists and to update any records with all medication providers or retail pharmacies. Education Materials Back Safety: Lifting Lifting can strain or even injure your back. Follow these tips to keep your back safe while you bend, lift, and carry. Step 1: Face the object. With your back straight, get down on one knee. If you can, tilt the object so one side lifts off the ground. Keep the object close to you. Step 2: Tighten your stomach muscles. Use your legs, arms, and buttocks to lift, not your back. Avoid twisting. Lift the object to your knee. Grasp the object firmly. Step 3: Lift with your arms and legs, not your back. Move quickly to help make this easier. To carry an object: Hold it close to your body. Bend your knees slightly as you walk. The heavier the object, the more you should bend your knees. Get help with heavy or unbalanced objects. 3061-6114 [employer] [address] [place] [address], [place] [address]. All rights reserved. This information is not intended as a substitute for professional medical care. Always follow your healthcare professional's instructions. Additional Information VACCINATE! IT SAVES LIVES! Members of the community who have not yet received the COVID-19 vaccine and would like to receive it can visit one of [facility] vaccine clinics. There are many vaccine clinic locations within the [facility]. For locations and available times, please visit www.gettheshot.coronavirus.[place].gov/. It is important to note that some COVID mobile vaccine clinics are held outdoors and may be canceled in rainy or stormy conditions. To learn more about pediatric vaccinations (ages 5-11), we invite you to visit the [facility] webpage. https://www.[facility].org/pages/2 569-Lztyk-Fgtazyqxzsa-Frequently-Asked -Questions.html To learn more about the COVID-19 vaccine, we invite you to visit the CDC website for a list of frequently asked questions. https://www.cdc.gov/coronavirus/2019-n cov/vaccines/faq.html [facility] Patient Portal Access Instructions: Stay connected with your healthcare team and access your personal medical information anytime with the [facility] Patient Portal. If you would like a full copy of your medical records please contact the [facility] Medical Records Department Wednesday through Wednesday between 8a.m. and 4:30p.m. Please follow the directions below to access the portal: 1.Access the email account you provided upon registration to the hospital.2.Look for an invitation email from [facility].3.Open the email and access the invitation link: Accept Invitation to [facility].Fill in the required chavez to create your account. Sign into [email or web address] with your username and password that you created in the above steps to stay up to date. You can then view a summary of results, a summary of your visits, and the ability to download your summaries to your computer or send the information securely to a physician. Remember that your healthcare information is confidential, so carefully consider who you will allow to register on the [facility] Patient Portal for access to your information. You can also access the [facility] Patient Portal on the [employer]. Simply click on Health Records under Health Data and then click on the Screen[employer] logo. HOW TO SAFELY DISPOSE OF PRESCRIPTION MEDICATIONS Please use one of the following methods to safely dispose of your unused medications. 1.Use a drug disposal kit: the drug disposal pouch allows you to safely discard your old and unused drugs. Ask your nurse to give you one when you are discharged.2.Visit a local take-back location: Many local pharmacies and police departments have programs that collect old and unwanted prescription drugs. Call your local pharmacy or go to http://V2contact.Swift Shift/7X1Ul3z to find one close to you.3.Make use of household items: Use cat litter or old coffee grounds to dispose medications if other options are not available. Mix your drugs with these household products, seal them in an airtight container and throw it into the garbage. Call [facility]: [phone] to be sure your drugs can be disposed of in this way. Some medicines may require a different approach.4.Never flush your medications down the toilet. IF YOU HAVE BEEN PRESCRIBED AN OPIOIDS FOR PAIN If you have been prescribed an opioid (such as hydrocodone, oxycodone or morphine), it is critical to understand the possible side effects and risks of opioid pain medications. Even when taken as directed, opioids can have several side effects including: Tolerance, meaning you might need to take more of a medication for the same pain relief. Nausea, vomiting and/or constipation. Sleepiness, dizziness, dry mouth, confusion, depression or itching. Physical dependence, meaning you have withdrawal symptoms when a medication is stopped ? this can develop within a few days. KNOW YOUR RESPONSIBILITIES It is important to know exactly how much and how often to take the opioid pain medications you are prescribed. Never take opioids in higher amounts or more often than prescribed. Do not combine opioids with alcohol or other drugs that cause drowsiness, such as benzodiazepines, also known as benzos, including diazepam and alprazolam, muscle relaxants or sleep aids. Never sell or share prescription opioids. This is illegal. Store opioids in a secure place and out of reach of others (including children, family, friends and visitors). The last page(s) of this document has been signed and retained as a CHART COPY Signatures Patient Education Materials Back Safety: Lifting Medication Leaflets My discharge plan and instructions have been reviewed and explained to me and ANDREW Canela CLAYTON E understand my current condition and have read and understand these discharge instructions. I have received a written copy of the plan/instructions. If I have questions, I am aware that I should contact my doctor. Patient/[employer] Signature: _ Date/Time: Relationship to Patient: Witness Name/Signature: Date/Time: [facility] Clinical Note 11-21-2023 Note Date & Type Note Facility 11-21-2023 Note Discharge Instructions Thank you for allowing [facility] to assist you with your healthcare needs. The following is important discharge information regarding your hospital visit. Diagnosis from Today's Visit Back pain Intervertebral disc disorder What to Do Next Instructions from Your Care Team Your CT scan shows possible nerve impingement. You need an MRI and followup to address this and your back pain issues. No qualifying data available. Post Acute Orders No qualifying data available. You Need to Schedule the Following Appointments Follow Up with Go to emergency room if symptoms worsen When Within 2-4 days Follow Up with ALBERTO NEWELL MD When Within 2-4 days Where: [address] [place] [address]- Allergies No active allergies Medications Please ask your primary doctor or pharmacist before taking any other medication not listed, including over the counter drugs, herbal medications, vitamins and or supplements as they may interact with your home medications. What How Much When Why Instructions Last Dose New acetaminophen-hydrocodone ([facility] 325- 5 mg oral tablet) 1 tab(s) by mouth Every 6 hours as needed for for pain Intervertebral disc disorder Duration: 3 Days Printed Prescription New cyclobenzaprine (cyclobenzaprine 5 mg oral tablet) 1 tab(s) by mouth Three (3) times a day Duration: 7 Days Printed Prescription Please take this list to your next doctor s visit. Bring all medications you take, including over the counter medications, herbals and other supplements with you to your doctor s visit. Patients and families are reminded to discard old lists and to update any records with all medication providers or retail pharmacies. Education Materials Back Safety: Lifting Lifting can strain or even injure your back. Follow these tips to keep your back safe while you bend, lift, and carry. Step 1: Face the object. With your back straight, get down on one knee. If you can, tilt the object so one side lifts off the ground. Keep the object close to you. Step 2: Tighten your stomach muscles. Use your legs, arms, and buttocks to lift, not your back. Avoid twisting. Lift the object to your knee. Grasp the object firmly. Step 3: Lift with your arms and legs, not your back. Move quickly to help make this easier. To carry an object: Hold it close to your body. Bend your knees slightly as you walk. The heavier the object, the more you should bend your knees. Get help with heavy or unbalanced objects. 3030-8666 The [employer]. [address] [place] [address]. All rights reserved. This information is not intended as a substitute for professional medical care. Always follow your healthcare professional's instructions. Additional Information VACCINATE! IT SAVES LIVES! Members of the community who have not yet received the COVID-19 vaccine and would like to receive it can visit one of [facility] vaccine clinics. There are many vaccine clinic locations within the [facility]. For locations and available times, please visit www.[email or web address].[place].gov/. It is important to note that some COVID mobile vaccine clinics are held outdoors and may be canceled in rainy or stormy conditions. To learn more about pediatric vaccinations (ages 5-11), we invite you to visit the [facility] webpage. [email or web address]/[email or web address]-Frequently-[email or web address] -Questions.html To learn more about the COVID-19 vaccine, we invite you to visit the CDC website for a list of frequently asked questions. https://www.cdc.gov/coronavirus/2019-n cov/vaccines/faq.html [facility] Patient Portal Access Instructions: Stay connected with your healthcare team and access your personal medical information anytime with the [facility] Patient Portal. If you would like a full copy of your medical records please contact the [facility] Medical Records Department Wednesday through Wednesday between 8a.m. and 4:30p.m. Please follow the directions below to access the portal: 1.Access the email account you provided upon registration to the [facility].2.Look for an invitation email from [facility].3.Open the email and access the invitation link: Accept Invitation to [facility].Fill in the required chavez to create your account. Sign into [email or web address] with your username and password that you created in the above steps to stay up to date. You can then view a summary of results, a summary of your visits, and the ability to download your summaries to your computer or send the information securely to a physician. Remember that your healthcare information is confidential, so carefully consider who you will allow to register on the [facility] Patient Portal for access to your information. You can also access the [facility] Patient Portal on the [employer]. Simply click on Health Records under Health Data and then click on the [facility] logo. HOW TO SAFELY DISPOSE OF PRESCRIPTION MEDICATIONS Please use one of the following methods to safely dispose of your unused medications. 1.Use a drug disposal kit: the drug disposal pouch allows you to safely discard your old and unused drugs. Ask your nurse to give you one when you are discharged.2.Visit a local take-back location: Many local pharmacies and police departments have programs that collect old and unwanted prescription drugs. Call your local pharmacy or go to http://V2contact.Swift Shift/3Y8Av2k to find one close to you.3.Make use of household items: Use cat litter or old coffee grounds to dispose medications if other options are not available. Mix your drugs with these household products, seal them in an airtight container and throw it into the garbage. Call [facility]: [phone] to be sure your drugs can be disposed of in this way. Some medicines may require a different approach.4.Never flush your medications down the toilet. IF YOU HAVE BEEN PRESCRIBED AN OPIOIDS FOR PAIN If you have been prescribed an opioid (such as hydrocodone, oxycodone or morphine), it is critical to understand the possible side effects and risks of opioid pain medications. Even when taken as directed, opioids can have several side effects including: Tolerance, meaning you might need to take more of a medication for the same pain relief. Nausea, vomiting and/or constipation. Sleepiness, dizziness, dry mouth, confusion, depression or itching. Physical dependence, meaning you have withdrawal symptoms when a medication is stopped ? this can develop within a few days. KNOW YOUR RESPONSIBILITIES It is important to know exactly how much and how often to take the opioid pain medications you are prescribed. Never take opioids in higher amounts or more often than prescribed. Do not combine opioids with alcohol or other drugs that cause drowsiness, such as benzodiazepines, also known as benzos, including diazepam and alprazolam, muscle relaxants or sleep aids. Never sell or share prescription opioids. This is illegal. Store opioids in a secure place and out of reach of others (including children, family, friends and visitors). The last page(s) of this document has been signed and retained as a CHART COPY Signatures Patient Education Materials Back Safety: Lifting Medication Leaflets My discharge plan and instructions have been reviewed and explained to me and IANDREW CLAYTON E understand my current condition and have read and understand these discharge instructions. I have received a written copy of the plan/instructions. If I have questions, I am aware that I should contact my doctor. Patient/[employer] Signature: _ Date/Time: Relationship to Patient: Witness Name/Signature: Date/Time: [facility] Clinical Note 11-21-2023 Note Date & Type Note Facility 11-21-2023 Note ORIGINAL EXAMINATION: CT OF THE LUMBAR SPINE WITHOUT CONTRAST 11/21/2023 TECHNIQUE: CT of the lumbar spine was performed without the administration of intravenous contrast. Multiplanar reformatted images are provided for review. Adjustment of mA and/or kV according to patient size was utilized. Automated exposure control, iterative reconstruction, and/or weight based adjustment of the mA/kV was utilized to reduce the radiation dose to as low as reasonably achievable. COMPARISON: None HISTORY: ORDERING SYSTEM PROVIDED HISTORY: Reason for Exam: lbp lower back pain. heard a pop while moving boxes FINDINGS: BONES/ALIGNMENT: There is mild levoscoliosis. The vertebral body heights are maintained. No osseous destructive lesion is seen. There are small endplate indentations compatible with Schmorl's nodes. L1-L2: There is no significant disc protrusion, central spinal canal stenosis or neural foraminal narrowing. L2-L3: There is mild disc bulge with endplate osteophytes and bilateral foraminal extension. There is mild ligamentum flavum and facet hypertrophy. There is mild central canal stenosis. There is no neuroforaminal stenosis. L3-L4: There is minimal grade 1 retrolisthesis of L3. There is mild disc bulge with endplate osteophytes and bilateral foraminal extension. There is mild ligamentum flavum and facet hypertrophy. There is mild central canal stenosis. There is mild-moderate bilateral neuroforaminal stenosis. L4-L5: There is moderate-severe disc space narrowing. There is mild ligamentum flavum and facet hypertrophy. There is disc bulge with endplate osteophytes and bilateral foraminal extension. There is broad-based central disc extrusion measuring 4 mm AP by 6 mm cc eccentric to the left, with moderate left lateral recess stenosis and possible mild impingement of the traversing left L5 nerve root. There is mild central canal stenosis. Moderate bilateral neural foraminal stenosis is present. L5-S1: Mild disc space narrowing is present. There is mild ligamentum flavum and facet hypertrophy. There is mild disc bulge with endplate osteophytes and bilateral foraminal extension. There is no central canal or neuroforaminal stenosis. SOFT TISSUES/RETROPERITONEUM: No paraspinal mass is seen. IMPRESSION: 1. There is no acute fracture or dislocation of the lumbar spine. 2. Multilevel mild degenerative changes are present. At L4-L5, there is broad-based central disc extrusion measuring 4 mm AP by 6 mm cc eccentric to the left, with moderate left lateral recess stenosis and possible mild impingement of the traversing left L5 nerve root. Follow-up MRI study may be useful for further evaluation, as clinically indicated. Interpreted by: Khris Young Preliminary Report By: Khris Young Electronically signed By Khris Young Dictated Date: 11/21/2023 6:18:06 PM Prelim Date: 11/21/2023 6:25:22 PM Sign Date: 11/21/2023 6:25:22 PM Ordering Provider: WINSOME JONES [facility] Evaluation + Plan note Note Date & Type Note Facility Evaluation + Plan note No data available for this section [facility] Evaluation note Note Date & Type Note Facility Evaluation note Diagnosis Onset Date Low back sprain acute Pain noneactive [facility] Work Phone: Evaluation note Note Date & Type Note Facility Evaluation note Diagnosis Onset Date Herniated nucleus pulposus, L4-5 acute [facility] Work Phone: Evaluation note Note Date & Type Note Facility Evaluation note No assessment information availa ble [facility] Work Phone: Hospital Discharge instructions Note Date & Type Note Facility Hospital Discharge instructions Ambulatory OrdersPain Management Location: None Selected [facility] Work Phone: Reason for referral (narrative) Note Date & Type Note Facility Reason for referral (narrative) No reason for referral information available [facility] Work Phone: Chief Complaint and Reason for Visit Chief Complaint Pain Reason for Visit Low back sprain Pain Chief Complaint LUMBAR SPINE room 2 HERNIATION L4-L5; PAIN Reason for Visit Herniated nucleus pu lposus, L4-5 Chief Complaint Admit Date LUMBAR SPINE March 13, 2025 8:12a m RM 4 March 13, 2025 8:35a m Advance Directives No Advanced Directives Records Found Advance Directive Response Recorded Date/ Time Living Will No July 28 014 12:29am Power of Pattern Painter No July 28, 2014 12:29am Summary Purpose Family History No Family History Records Found Additional Source Comments Goals (unrecognized section and content) Goals may be documented in a n alternate section No data available for this sectionGoals may be documented in an alternate sectionGoals may be documented in an alternate sectionGoals may be documented in an alternate section Patient Care team informatio n (unrecognized section and content) Team Status: Active Member Role Status Dates Dr. Jonathan Lozano MD Family Provider Active Dr. Geovanny Bravo MD Primary Care Provider Active Team Status: Inactive Member Role Status Dates Dr. Geovanny Bravo MD Primary Care Provider, Referring Provider Active Dr. Yves Pereira DO Attending Provider Active Team Status: Inactive Member Role Status Dates Dr. Geovanny Bravo MD Primary Care Provider Active Dr. Ray Morin MD Attending Provider Active Team Status: Inactive Member Role Status Dates Dr. Geovanny Bravo MD Primary Care Provider Active Dr. Yves Pereira DO Attending Provider, Referring P rovider Active Team Status: Active Member Role/Relationship Status Dates Dr. Jonathan Lozano MD Family Provider Active Dr. Geovanny Bravo MD Primary Care Provider Active Team Status: Active Member Role/Relationship Status Dates Dr. Geovanny Bravo MD Primary Care Provider Active Start: March 13, 2025 Dr. Geovanny Bravo MD Referring Provider Active Start: March 13, 2025 KIMBERLY Rubio Attending Provider Active Star t: March 13, 2025 Team Status: Inactive Member Role/Relationship Status Dates Dr. Geovanny Bravo MD Primary Care Provider Active Start: March 13, 2025 End: March 13, 2025 Dr. Ray Morin MD Attending Provider Active S tart: March 13, 2025 End: March 13, 2025 Team Status: Inactive Member Role/Relationship Status Dates Dr. Geovanny Bravo MD Primary Care Provider Active Start: March 13, 2025 End: March 13, 2025 Dr. Geovanny Bravo MD Referring Provider Active Start: March 13, 2025 End: March 13, 2025 KIMBERLY Rubio Attending Provider Active Star t: March 13, 2025 End: March 13, 2025 (unrecognized sect ion and content) No Status Records FoundNo Status Records Found INFORMATION SOURCE (unrecogn ized section and content) DATE CREATED AUTHOR 11/28/2023 [facility] ([place]) DATE CREATED AUTHOR AUTHOR'S ORGANIZ ATION 03/14/2025 [facility] FOR RECORDS PERTAINING TO PATIENTS WHO ARE OR HAVE BEEN ENROLLED IN A CHEMICAL DEPENDENCY/SUBSTANCEABUSE PROGRAM, SOME INFORMATION MAY BE OMITTED. This clinical summary was aggregated from multiple sources. Caution should be exercised in using it in the provision of clinical care. This summary normalizes information from multiple sources, and as a consequence, information in this document may materially change the coding, format and clinical context of patient data. In addition, data may be omitted in some cases. CLINICAL DECISIONS SHOULD BE BASED ON THE PRIMARY CLINICAL RECORDS. [facility] [employer] [facility]. provides no warranty or guarantee of the accuracy or completeness of information in this document.
[2025-06-01 11:30] LABS: Anion Gap 12 (5-15); BUN 11 mg/dL (4-19); BUN/Creat Ratio 9.6 RATIO (10-20); Calcium,Total 9.8 mg/dL (7.6-11.0); Carbon Dioxide 26.3 mmol/L (21.0-32.0); Chloride 102 mmol/L (98-108); Glucose 87 mg/dL (70-99); Potassium 4.0 mmol/L (3.3-5.1)
== END | disposition home or self-care (01) ==
LOC: MFPLAB 08:13
PROVIDERS: PCP Family Medicine; Visit Provider Family Medicine
DX: R25.1 Tremor, unspecified (principal)
CPT/HCPCS: 36415; 80048; 84443